=== PATIENT | female | born 1995 | race Caucasian/White ===

== ENCOUNTER 2021-05-25 20:54 | Inpatient (IN) | payer OTHER ==
[~2021-05-25] VITALS: Ht 160 cm; Wt 84.5 kg
[2021-05-25] MEDS ORDERED: LACTATED RINGER'S 1000 ML IV STA ×2 (22:02→22:06)
[2021-05-25] MEDS ORDERED: OXYTOCIN INJ 10 UNITS/ML VIAL (J2590) IV PRN (22:05)
[2021-05-25] MEDS ORDERED: LIDOCAINE 1% MDV 20ML VIAL INFIL PRN ×2 (22:05→22:10)
[2021-05-25] MEDS ORDERED: TRANEXAMIC ACID INJection 1,000 MG in NS 100 ML IV PRN ×2 (22:05→22:10)
[2021-05-25] MEDS ORDERED: CARBOPROST TROMETHAMINE 250 MCG/ML AMP IM PRN ×2 (22:05→22:10)
[2021-05-25] MEDS ORDERED: OXYTOCIN DRIP 30 UNITS in IV 1 EA IV PRN ×7 (22:05→22:10)
[2021-05-25] MEDS ORDERED: METHYLERGONOVINE MALEATE 0.2 MG/ML VIAL (J2210) IM PRN (22:05)
[2021-05-25] MEDS ORDERED: LR 1,000 ML IV SCH ×3 (22:05→22:10)
[2021-05-25] MEDS ORDERED: OXYTOCIN INJ 10 UNITS/ML VIAL (J2590) IM PRN (22:05)
[2021-05-25] MEDS ORDERED: OXYTOCIN DRIP 30 UNITS in IV 1 EA IV SCH (22:10)
[2021-05-25 22:18] LABS: HEMATOCRIT 43.8 % (36.0-47.0); HEMOGLOBIN 15.1 g/dl (12.0-15.5); MEAN CORPUSCULAR HGB CONC 34.5 g/dl (32.0-36.5); MEAN CORPUSCULAR VOLUME 95.6 fl (80.0-96.0); PLATELET COUNT, AUTOMATED 175 10^3/uL (150-450); RED BLOOD COUNT 4.58 10^6/uL (4.00-5.40); WHITE BLOOD COUNT 15.6 10^3/uL (4.0-10.0)
[2021-05-25] MEDS ORDERED: FENTANYL 2MCG/ML ROPIVACAINE 0.2% IN 0.9% NACL 100ML IVBAG As Ordered ONE (22:29)
--- NOTE | 2021-05-25 22:34 | HPEPDOC ---
Obstetrical History & Physical General Date of Admission May 25, 2021 at 21:33 History of Present Illness The patient is a 26 yo G1 at 40W2D by LMP c/w 1st us admitted in labor at full term. She denies any vaginal bleeding, abnormal vaginal discharge, leakage of fluids, urinary symptoms, or regular contractions. She denies any new headaches, visual abnormalities, chest pain, worsening dyspnea, facial swelling, or upper extremity swelling. At this time, she continues to report regular movement. Chief Complaint: Contractions, term Care Care: Good Care Dating Final EDC: May 23, 2021 Final EDC by: LMP LMP: Aug 16, 2020 EGA at Admission: 4 (40W2D) Antepartum Course Diagnos(e)s 1. excessive weight gain in , #54lb 2. Rh NEG, RECEIVED RHOGAM AT 28 WEEKS Height (inches): 62 Pre- weight (lbs.): 130 Admission Weight (lbs.): 184 Change in Weight (lbs.): 54 Past Medical History Past Obstetrical History : Past Obstetrical History: [employer] History: No pertinent history Past Medical History Surgical History: Denies/None, [place] Family History Significant Family History: No pertinent family hx Social History Marital Status: Family situation: Spouse/partner home * Smoker: non-smoker Alcohol: Denies Drugs: denies Abuse Violence Screening Have you been hit/kicked/slapp: No Have you been sexually assault: No Imunizations Tdap status: current Physical Examination Physical Examination GENERAL: Alert and oriented times three. BREAST: . ABDOMEN: Gravid and non-tender to touch. FETUS: Is vertex (VTX) by US HEART RATE: Regular rate and rhythm. LUNGS: NORMAL WORK OF BREATHING EXTREMITIES: No edema. sve: 5/50/-2 per RN Laboratory Data 24H LABS Laboratory Tests 2 05/25/21 22:05: Nucleated Red Blood Cells % (auto) 0.0 CBC/BMP Laboratory Tests 05/25/21 22:05 Urine Culture: No Growth Pertinent Laboratoy Data Blood Type: O- RBC Antibody Screen: Negative HIV: Negative Hepatitis B: Negative Hepatitis C: Unknown Rapid Plasma Reagin: Nonreactive Rubella: Immune Varicella: Immune Chlamydia/Gonorrhea: Negative Group B Streptococcus: Negative Cystic Fibrosis: Negative Glucose Tolerance Test: 75 Anatomy Ultrasound Placenta Location: Anterior Normal Anatomy: Yes Steroid Therapy Steroid Therapy: No Vaginal Examination Dilation: 5 cm Effacement: 50% Station: -2 Cervical Consistency: Medium Cervical Position: Middle Presentation: Cephalic presentation Assessment Heart Rate (FHR): 140 Variability: Moderate Accelerations: Positive Decelerations: None Tocometer Contractions: Yes Frequency: regular Duration: greater than 60 seconds Strength: palpated as moderate Multi-drug resistant Organism: No history of MDRO Assessment/Plan Assessment Assessment: 26 yo G1 at 40W2D by LMP c/w 1st us admitted in labor at full term.. Category I FHRT. APC: 1. excessive weight gain in , #54lb 2. Rh NEG, RECEIVED RHOGAM AT 28 WEEKS SVE: /-2 GBS NEG/ Cephalic by US EFW 3500 RH POS Placenta Anterior no previa Plan Plan: - Admit to L&D. - Consent signed and given to RN - CBC with type and screen. - EFM - Anesthesia to see - Risks of augmentation with Pitocin discussed with patient. - GBS negative. Labor and Delivery Counseling We will deliver your baby through the vagina with possible assistance of forceps or vacuum device if needed for maternal or indications. Forceps and vacuum are devices that can assist with vaginal delivery when normal pushing efforts cannot achieve delivery on their own or when delivery is needed in an emergency for baby's well-being. Medications may be required to induce or augment (help) your labor in order to achieve a vaginal delivery. An episiotomy may be required to help your baby to delivery vaginally. You may also require repair of any lacerations or tears of your vagina or vulva that are caused by delivery. In some cases, emergencies can occur that require an emergency section delivery so quickly that there may not be enough time to stop and complete consent forms for section. Understand that if this occurs, your providers will discuss the need for a section with you before they proceed with surgery. section is the delivery of your baby through an incision in your abdomen. In some situations, section may be safer to mom and baby than continuing labor and is only performed when clinically indicated. Risks of vaginal delivery include but are not limited to: Bleeding, infection, injury to the vagina, pelvic structures, injury to baby, damage to the uterus, reactions to anesthesia, uterine rupture, risk of hysterectomy for life threatening bleeding, or . Medications used to induce or augment labor may increase your risk for infection, uterine tachysystole, uterine rupture, heart rate abnormalities, need for emergency delivery or possible hysterectomy, and hemorrhage. Additional risks for use of forceps and vacuum include: increased risk of perineal and vaginal lacerations, risk of urinary or bowel incontinence, increased risk of injury to baby with bruising, scratches, hematomas on the head, or intracranial bleeding. DELPHINE FIERRO MD May 25, 2021 22:34
[2021-05-25] MEDS ORDERED: PRENTAB9 PO (22:39)
[2021-05-26] VITALS (17 sets, daily range): BP systolic 95–152; BP diastolic 50–79
[2021-05-26] MEDS ORDERED: OXYTOCIN 30 UNITS IN 0.9% NaCl 500ML IV BAG (J2590) As Ordered ONE (01:33)
[2021-05-26] MEDS ORDERED: ONDANSETRON 4MG/2ML VIAL IV PRN (02:55)
[2021-05-26] MEDS ORDERED: diphenhydrAMINE 50MG/ML VIAL (J1200) IV PRN (02:55)
[2021-05-26] MEDS ORDERED: REFRIGERATOR IV KEYS XX PRN (02:55)
[2021-05-26] MEDS ORDERED: EPIDURAL/PCA KEYS XX PRN (02:55)
[2021-05-26] MEDS ORDERED: FENTANYL/ROPIVACAINE/NACL BAG 100 ML EPIDURAL SCH (02:55)
[2021-05-26] MEDS ORDERED: ePHEDrine SULFATE 25 MG/5 ML(5MG/ML) SYRINGE IV PRN (02:55)
[2021-05-26] MEDS ORDERED: EPIDURAL COMMENT XX SCH (02:55)
[2021-05-26] MEDS ORDERED: NALOXONE INJ 0.4MG/1ML VIAL (J2310 PER 1MG) IV PRN (02:55)
[2021-05-26] MEDS ORDERED: LACTATED RINGER'S 1000 ML IV PRN (02:55)
[2021-05-26] MEDS ORDERED: MEASLES,MUMPS,RUBELLA VACCINE INJ (MMR-II) (90707) SC SCH (05:20)
[2021-05-26] MEDS ORDERED: MOM 30ML SUSPENSION UDC PO PRN (05:20)
[2021-05-26] MEDS ORDERED: DOCUSATE SODIUM 100MG CAPSULE PO PRN (05:20)
[2021-05-26] MEDS ORDERED: ANUSOL HC CREAM 30GM TOP PRN (05:20)
[2021-05-26] MEDS ORDERED: RHOGAM 300 MCG (1500 IU) INJ (J2790) IM SCH (05:20)
--- NOTE | 2021-05-26 05:30 | DNPDOC ---
[facility] Delivery Note Delivery Note DATE OF DELIVERY: 05/26/21 PREDELIVERY DIAGNOSIS: 40-3/7 weeks' gestation and labor, Rh NEG, Excessive weight gain POST DELIVERY DIAGNOSIS: Delivered. PROCEDURE: Spontaneous vaginal delivery BENEFITS COUNSELOR: Delphine Rome ANESTHESIA: Epidural ESTIMATED BLOOD LOSS: 150 mL. FINDINGS: 7pound 14 ounce, 3540G male , Score 9/9, nuchal cord times 1. DELIVERY SUMMARY: Patient is a 26-year-old 1 now para 1001 who was admitted to labor and delivery for ACTIVE LABOR. She progressed to C/C/+2 and with good maternal effort delivered a viable . The infants head delivered OA and the head was allowed to spontaneously restitute AMBREEN. loose nuchal cord noted and delivered through. anterior shoulders delivered with gentle downward traction followed by posterior shoulder and corpus without difficulty. Normal 3-vessel cord clamped x 2 and cut by FOB after 1 minute of delayed cord clamping. Spontaneous cry noted. Infant placed on maternal abdomen for [id number] Cord blood obtained. Placenta delivered spontaneously and inspection of the placenta demonstrated that it was intact. The cord insertion appeared normal. The uterus was cleared of all clots and debris. Fundal massage until firm. 30 units of Pitocin administered per protocol and the patient required no additional uterotonics. Inspection of cervix, perineum, and vaginal wall revealed 1st degree laceration that was repaired in the usual fashion and left labial laceration that was repaired with a figure of eight both with a 2-0 vicryl. . Repeat uterine examination noted uterine tone to be adequate and firm. Mom and stayed in L&D in hemodynamic stable condition upon my departure. Sponge, lap and needle count correct x 2. ERIN FIERRO Staff DELPHINE FIERRO MD May 26, 2021 05:30
[2021-05-26] MEDS: PRENATAL VITAMINS CHEWABLE TABLET PO SCH (08:40)
[2021-05-26] MEDS: IBUPROFEN 800 MG TAB PO PRN ×2 (08:40→18:36)
[2021-05-26] MEDS: ACETAMINOPHEN 500 MG TAB PO PRN (11:55)
[2021-05-26] MEDS: DIBUCAINE 1% OINTMENT 30GM TOP PRN (11:55)
--- NOTE | 2021-05-27 05:40 | OBDS ---
[facility] Obstetrical Discharge Sum. Obstetrical Discharge Summary Business Controller/Provider: BRITNEY FENG DO Date: May 27, 2021 Time: 05:36 : 1 Term: 1 Pre-term: 0 Abortions: 0 Livin VDRL: Non-Reactive Rh: Negative Rubella: Immune Labor uncomplicated Delivery normal spontaneous vaginal delivery Infant Sex: Male Infant Weight: pounds (7), ounces (14), grams (3580) Anesthesia: Regional Anesthesia A/P, Post Course List any complications Admission diagnosis: labor Discharge diagnosis: status post normal spontaneous vaginal delivery Condition at Discharge: Good Discharge Instructions: Home Activity: vaginal rest, otherwise as tolerated Diet: Resume pre-hospital diet Medications: at [place] Follow-up: 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
[2021-05-27] MEDS ORDERED: COLA100C5 PO (05:43)
[2021-05-27] MEDS ORDERED: ACET-683 PO (05:43)
[2021-05-27] MEDS ORDERED: IBUP80TA PO (05:43)
[2021-05-27] MEDS: IBUPROFEN 800 MG TAB PO PRN ×2 (05:49→17:42)
[2021-05-27 06:24] VITALS: BP 140/81
[2021-05-27] MEDS: PRENATAL VITAMINS CHEWABLE TABLET PO SCH (08:26)
[2021-05-27] MEDS: ACETAMINOPHEN 500 MG TAB PO PRN (15:10)
[2021-05-27] MEDS: DIBUCAINE 1% OINTMENT 30GM TOP PRN (15:36)
--- NOTE | 2021-05-31 09:54 | IPN ---
PROGRESS NOTE DATE: 05/25/2021 SUBJECTIVE: This patient requested circumcision of her male infant. After discussing risks and benefits of circumcision, the medical, the nonmedical indications, the penile block and aftercare, expressed understanding of penile block, aftercare and bleeding, signed the consent form. All questions were answered. Twenty minute discussion. We await clearance by the regional branch manager.
== END 2021-05-27 16:40 | disposition home or self-care (01) | DRG 807 ==
LOC: M LDO 20:54 → M LDI 21:33 → M OBS 05-26 08:32
PROVIDERS: ADMIT Obstetrics & Gynecology; ATTEND Obstetrics & Gynecology
PROC: 10E0XZZ Delivery of Products of Conception, External Approach (ICD-10-PCS; principal; 2021-05-26)
PROC: 0HQ9XZZ Repair Perineum Skin, External Approach (ICD-10-PCS; 2021-05-26)
DX: O48.0 Post-term pregnancy (principal); Z37.0 Single live birth; Z3A.40 40 weeks gestation of pregnancy; O26.03 Excessive weight gain in pregnancy, third trimester; O69.81X0 Labor and delivery complicated by cord around neck, without compression, not applicable or unspecified; O70.0 First degree perineal laceration during delivery